=== PATIENT | male | born 1955 | race Two or more races ===

== ENCOUNTER 2017-11-07 21:59 | Inpatient (IN) | payer MEDICAID ==
[~2017-11-07] VITALS: Ht 175.3 cm; Wt 118.4 kg
[2017-11-08 00:45] VITALS: BP 141/76
--- NOTE | 2017-11-08 00:45 | NUR ---
RN NOTE; RECEIVED AND ADMITTED A 62 Y/O, M. A, OX4. FAMILY AT THE BED SIDE. BREATHING EVENLY. NO OSB. NAD . SKIN WARM AND DRY. W/ C/O ABD. PAIN. NO N/V. VSS. SKIN INTACT. MEDICAL HX WAS OBTAINED FROM THE PT AND THE SON AT THE BED SIDE. NEEDS ATTENDED . BED LOW LOCKED .CALL LIGHT WITHIN REACH. WILL CONT TO MONITOR AND WILL F/U WITH MD'S ORDERS.
[2017-11-08] MEDS ORDERED: SITA100T PO (01:13)
[2017-11-08] MEDS ORDERED: METF-442 PO (01:13)
[2017-11-08] MEDS ORDERED: ONDANSETRON HCL/PF 4 MG/2 ML VIAL IV PRN (01:30)
[2017-11-08 01:36] VITALS: BP 141/76
[2017-11-08] MEDS: MORPHINE SULFATE INJ 4 MG/ML DISP.SYRIN IV PRN (01:37)
[2017-11-08] MEDS ORDERED: ACETAMINOPHEN 650 MG/SUPP.RECT RC PRN (05:30)
[2017-11-08] MEDS ORDERED: DEXTROSE 50%-WATER 50 ML DISP.SYRIN IV PRN ×2 (05:30→13:00)
[2017-11-08] MEDS ORDERED: PIPERACILLIN /TAZOBACTAM 3.375 G VIAL IV ONE (05:49)
[2017-11-08] MEDS ORDERED: VANCOMYCIN 2 GM in IV D5W 500 ML IV ONE (06:00)
--- NOTE | 2017-11-08 06:00 | NUR ---
RN NOTES PATIENT ASLEEP, EASILY AROUSABLE. RESPIRATIONS EVEN. NO SIGNS OF PAIN NOTED. NEEDS ATTENDED. SAFETY PRECAUTIONS AND COMFORT MEASURES IN PLACE. WILL GIVE REPORT TO DAY SHIFT FOR CONTINUITY OF CARE.
[2017-11-08] MEDS: BLOOD SUGAR DIAGNOSTIC 1 EACH STRIP IN SCH ×3 (06:37→17:37)
[2017-11-08] MEDS: PIPERACILLIN /TAZOBACTAM 3.375 G in IV D5W 50 ML IV SCH ×3 (06:41→17:26)
[2017-11-08] MEDS: IV D5/0.45 NACL 1,000 ML IV PRN (06:42)
[2017-11-08] MEDS ORDERED: FEE PK DOSING 1 MIN EA MC ONE (07:28)
[2017-11-08 07:47] LABS: BASOPHILS % (AUTO) 0.3 % (0.0-2.0); EOSINOPHILS % (AUTO) 0.7 % (0.0-6.0); HEMATOCRIT 35 % (39-51); LYMPHOCYTES # (AUTO) 0.6 /CMM (0.8-4.8); LYMPHOCYTES % (AUTO) 14.2 % (20.0-44.0); MEAN CORPUSCULAR HGB CONC 34 g/dl (31.0-36.0); MEAN CORPUSCULAR VOLUME 85 fL (80-96); MONOCYTES # (AUTO) 0.3 /CMM (0.1-1.30); NEUTROPHILS # (AUTO) 3.5 /CMM (1.8-8.9); NEUTROPHILS % (AUTO) 77.8 % (43.0-81.0); PLATELET COUNT (AUTO) 272 /CMM (150-450); RDW COEFFICIENT OF VARIATION 12.3 (11.5-15.0); RED BLOOD CELL COUNT(AUTO) 4.13 MIL/uL (4.5-6.0); WHITE BLOOD COUNT (AUTO) 4.5 K/uL (4.3-11.0)
[2017-11-08 07:59] LABS: CALCIUM, SERUM 8.3 mg/dL (8.5-10.1); CARBON DIOXIDE 29 mmol/L (21-32); CHLORIDE 105 mmol/L (98-107); CREATININE 0.8 mg/dL (0.6-1.3); GLUCOSE 212 mg/dL (74-106); SODIUM SERUM 141 mmol/L (136-145); UREA NITROGEN, BLOOD 9 mg/dL (7-18)
[2017-11-08 08:00] VITALS: BP 123/70
[2017-11-08] MEDS ORDERED: VANCOMYCIN 1.5 GM in IV D5W 500 ML IV ONE (08:00)
--- NOTE | 2017-11-08 08:00 | NUR ---
MS RN NOTES PATIENT IN BED RESTING NO SOB OR ACUTE DISTRESS NOTED. PATIENT ALERT, ORIENTED X4 DENIES ANY PAIN OR DISCOMFORT. PERIPHERAL IV INTACT PATENT RUNNING PRESCRIBED FLUIDS. BED IN LOW LOCKED POSITION CALL LIGHT WITHIN REACH. WILL CONTINUE TO MONITOR.
[2017-11-08 08:06] LABS: TROPONIN I < 0.017 ng/mL (0.00-0.056)
[2017-11-08 08:11] LABS: CHOLESTEROL 194 mg/dL (<200); HDL CHOLESTEROL 35 mg/dL (40-60); LDL 129 mg/dL (0-99); THYROID STIMULATING HORMONE 1.207 uIU/mL (0.358-3.74); TRIGLYCERIDES 194 mg/dL (30-150)
[2017-11-08 08:13] LABS: ALANINE AMINOTRANSFERASE 22 U/L (12-78); ALBUMIN 2.8 g/dL (3.4-5.0); ALKALINE PHOSPHATASE 93 U/L (46-116); ASPARTATE AMINOTRANSFERASE 13 U/L (15-37); BILIRUBIN,TOTAL 0.5 mg/dL (0.2-1.0); PHOSPHORUS 3.4 mg/dL (2.5-4.9)
[2017-11-08] MEDS: VANCOMYCIN 1.5 GM in IV D5W 500 ML IV SCH ×2 (09:48→22:11)
[2017-11-08] MEDS: PANTOPRAZOLE 40 MG VIAL IV SCH (09:49)
[2017-11-08] MEDS ORDERED: KETOROLAC TROMETHAMINE INJ 30 MG/ML VIAL IV ONE (12:30)
[2017-11-08] MEDS: INSULIN REGULAR, HUMAN 100 UNIT/ML 3 ML VIAL SQ PRN ×2 (12:33→17:38)
[2017-11-08] MEDS ORDERED: INSULIN REGULAR, HUMAN 100 UNIT/ML 3 ML VIAL SQ PRN (13:00)
[2017-11-08 16:00] VITALS: BP 138/78
--- NOTE | 2017-11-08 16:00 | NUR ---
MS RN NOTES PATIENT SEEN AND EVALUATED BY DR. VIVAR ORDERS NOTED AND CARRIED OUT.
[2017-11-08] MEDS ORDERED: BLOOD SUGAR DIAGNOSTIC 1 EACH STRIP IN SCH (18:00)
--- NOTE | 2017-11-08 18:41 | NUR ---
MS RN NOTES PATIENT IN BED RESTING NO SOB OR ACUTE DISTRESS NOTED. PATIENT ALERT, ORIENTED X4. PATIENT REMAINS NPO. PERIPHERAL IV INTACT PATENT. ALL DUE MEDICATIONS ADMINISTERED. ALL NEEDS MET. WILL ENDORSE CARE TO PM SHIFT.
--- NOTE | 2017-11-08 19:30 | NUR ---
MS/RN OPENING NOTES PT RECEIVED AWAKE, A/OX4. FRENCH SPEAKING BUT UNDERSTANDS SOME SWEDISH. ON ROOM AIR, BREATHING EVEN AND UNLABORED. NO S/S OF DISTRESS AT THIS TIME. DENIES PAIN AND SOB. IV TO RFA PATENT AND INTACT RUNNING IVF ORDERED. PT NPO. BED IN LOW/LOCKED POSITION WITH CALL LIGHT IN REACH, SIDE RAILS UP X2. WILL CONTINUE TO MONITOR
[2017-11-08 20:00] VITALS: BP 146/88
[2017-11-09] MEDS: BLOOD SUGAR DIAGNOSTIC 1 EACH STRIP IN SCH ×6 (00:30→23:33)
[2017-11-09] MEDS: PIPERACILLIN /TAZOBACTAM 3.375 G in IV D5W 50 ML IV SCH ×5 (00:30→23:32)
[2017-11-09] MEDS: INSULIN REGULAR, HUMAN 100 UNIT/ML 3 ML VIAL SQ PRN ×5 (00:41→23:39)
[2017-11-09] MEDS: IV D5/0.45 NACL 1,000 ML IV PRN (06:05)
--- NOTE | 2017-11-09 07:08 | NUR ---
MS/RN CLOSING NOTES PT ASLEEP, A/OX4. REMAINS ON ROOM AIR, BREATHING EVEN AND UNLABORED. DENIES PAIN AND SOB. IV TO RFA PATENT AND INTACT RUNNING IVF ORDERED. PT REMAINED NPO DURING SHIFT. NO SIGNIFICANT CHANGES OVERNIGHT. KEPT PT COMFORTABLE DURING SHIFT. BED IN LOW/LOCKED POSITION WITH CALL LIGHT IN REACH, SIDE RAILS UP X2. ENDORSED TO DAY SHIFT RN BRITNI.
--- NOTE | 2017-11-09 07:20 | NUR ---
MS/RN OPENING NOTES PT ASLEEP, A/OX4. REMAINS ON ROOM AIR, BREATHING EVEN AND UNLABORED. DENIES PAIN AND SOB. IV TO RFA PATENT AND INTACT RUNNING IVF ORDERED. PT REMAINED NPO AT THIS TIME. KEPT CLEAN DRY AND COMFORTABLE. BED IN LOW/LOCKED POSITION WITH CALL LIGHT IN REACH, SIDE RAILS UP X2, WILL CONTINUE TO MONITOR
[2017-11-09 08:00] VITALS: BP 142/80
[2017-11-09] MEDS: VANCOMYCIN 1.5 GM in IV D5W 500 ML IV SCH ×2 (08:38→21:04)
[2017-11-09] MEDS: PANTOPRAZOLE 40 MG VIAL IV SCH (08:38)
[2017-11-09 08:50] LABS: BASOPHILS % (AUTO) 0.3 % (0.0-2.0); EOSINOPHILS % (AUTO) 0.7 % (0.0-6.0); HEMATOCRIT 37 % (39-51); HEMOGLOBIN 12.9 g/dL (13.5-17.5); LYMPHOCYTES # (AUTO) 0.9 /CMM (0.8-4.8); LYMPHOCYTES % (AUTO) 19.9 % (20.0-44.0); MEAN CORPUSCULAR HGB CONC 35 g/dl (31.0-36.0); MEAN CORPUSCULAR VOLUME 84 fL (80-96); MONOCYTES # (AUTO) 0.4 /CMM (0.1-1.30); MONOCYTES % (AUTO) 8.9 % (2.0-12.0); NEUTROPHILS # (AUTO) 3.1 /CMM (1.8-8.9); NEUTROPHILS % (AUTO) 70.2 % (43.0-81.0); PLATELET COUNT (AUTO) 307 /CMM (150-450); RDW COEFFICIENT OF VARIATION 12.1 (11.5-15.0); WHITE BLOOD COUNT (AUTO) 4.4 K/uL (4.3-11.0)
[2017-11-09 08:57] LABS: BILIRUBIN,DIRECT 0.1 mg/dL (0.0-0.2); BILIRUBIN,TOTAL 0.9 mg/dL (0.2-1.0); CALCIUM, SERUM 8.5 mg/dL (8.5-10.1); MAGNESIUM 2.1 mg/dL (1.8-2.4); PHOSPHORUS 3.3 mg/dL (2.5-4.9); POTASSIUM 3.7 mmol/L (3.5-5.1); TOTAL PROTEIN, SERUM 7.7 g/dL (6.4-8.2)
[2017-11-09] MEDS: MORPHINE SULFATE INJ 4 MG/ML DISP.SYRIN IV PRN ×2 (10:40→21:02)
[2017-11-09] MEDS ORDERED: MIDAZOLAM HCL 5MG/ML VIAL 25 MG/5 ML VIAL IV ONE (15:00)
[2017-11-09] MEDS ORDERED: NALOXONE PREFILLED SYRINGE 2 MG/2 ML SYRINGE IV ONE (15:00)
[2017-11-09] MEDS ORDERED: FENTANYL PF 250MCG/5ML AMPUL IV ONE (15:00)
[2017-11-09 15:01] LABS: INR 1.02 (0.87-1.13)
[2017-11-09 16:00] VITALS: BP 146/85
--- NOTE | 2017-11-09 16:01 | NUR ---
RN NOTES PATIENT TAKEN CT FOR PROCEDURE IN STABLE CONDITION
[2017-11-09] MEDS ORDERED: IV NS 0.9% 500 ML IV ONE (16:04)
[2017-11-09] MEDS ORDERED: LIDOCAINE HCL/PF 1% 30 ML SDV ONE (16:24)
--- NOTE | 2017-11-09 18:30 | NUR ---
RN NOTES PT BACK FROM PROCEDURE, BODY FLUID TAKEN TO LAB FOR TESTING WILL CONTINUE TO MONITOR
--- NOTE | 2017-11-09 19:30 | NUR ---
MS/RN OPENING NOTES PT AWAKE ALERT VERBALLY RESPONSIVE, A/OX4. REMAINS ON ROOM AIR, BREATHING EVEN AND UNLABORED. DENIES PAIN AND SOB. IV TO RFA PATENT AND INTACT RUNNING IVF ORDERED. PT NOW WITH CLEAR LIQUIDS. KEPT CLEAN DRY AND COMFORTABLE. BED IN LOW/LOCKED POSITION WITH CALL LIGHT IN REACH, SIDE RAILS UP X2, ENDORSED TO NEXT SHIFT FOR CONTINUITY OF CARE
--- NOTE | 2017-11-09 19:35 | NUR ---
MS RN OPENING NOTES: PATIENT SITTING ON BED, AOX4, ON ROOM AIR, BREATHING EVEN AND UNLABORED. APPEARS CALM AND IN NO DISTRESS. STATES THAT HE HAS MODERATE 6/10 PAIN OVER HIS RUQ OF ABDOMEN. NOTED DRAIN ATTACHED AT RUQ ABDOMEN, WITH VERY MINIMAL AMOUNT OF SANGUINEOUS DRAINAGE IN COLLECTION CHAMBER, SO MINIMAL THAT IT HAS NOT REACHED THE COLLECTION BAG ITSELF. DRESSING OVER RUQ CLEAN AND INTACT. PIV OVER RFA G 20 INTACT AND INFUSING WELL WITH D5 1/2 NS RUNNING AT 70 ML/HR. PROVIDED FOR COMFORT AND SAFETY. BED IN LOWEST AND LOCKED POSITION. SIDERAILS UP X 3, CALL LIGHT WITHIN REACH. WILL CONT TO MONITOR.
[2017-11-09 20:00] VITALS: BP 141/79
--- NOTE | 2017-11-09 21:03 | NUR ---
RN NOTES: ADMINISTERED MORPHINE 4 MG IV FOR 9/10 RUQ PAIN. VS STABLE. WILL CONT TO MONITOR.
[2017-11-09 22:00] VITALS: BP 138/75
--- NOTE | 2017-11-09 23:00 | NUR ---
RN NOTES: PATIENT ASKED IF HE CAN BE GIVEN MOTRIN, ACCDG TO HIM, HE TAKES 800 MG PO AT HOME. CALLED CHARIS LOPEZ NP, HOWEVER, MOTRIN NOT ORDERED FOR HIM AT THIS TIME, PER PRIVACY MANAGER, CONT CURRENT MEDS FOR PAIN. EXPLAINED TO PT, COLIN AGREES.
[2017-11-09] MEDS: HYDROCODONE/APAP 10/325MG 1 EA TABLET PO SCH (23:33)
--- NOTE | 2017-11-10 | NUR ---
RN NOTES: BS CHECKED AT 208 MG/DL, ADMINISTERED 6 UNITS REGULAR INSULIN PER SCALE. WILL CONT TO MONITOR.
[2017-11-10] MEDS: HYDROCODONE/APAP 10/325MG 1 EA TABLET PO SCH ×4 (04:00→22:00)
--- NOTE | 2017-11-10 05:07 | NUR ---
RN NOTES: PATIENT REFUSING NORCO 10-325 MG PO, SAYS HE IS FREE FROM PAIN FOR NOW. PATIENT WENT BACK TO SLEEP.
[2017-11-10] MEDS: BLOOD SUGAR DIAGNOSTIC 1 EACH STRIP IN SCH ×4 (06:08→23:41)
[2017-11-10] MEDS: PIPERACILLIN /TAZOBACTAM 3.375 G in IV D5W 50 ML IV SCH ×2 (06:08→12:31)
--- NOTE | 2017-11-10 06:15 | NUR ---
RN NOTES: BLOOD SUGAR CHECKED AT 163 MG/ DL, ADMINISTERED 3 UNITS REGULAR INSULIN PER SCALE SQ.
[2017-11-10] MEDS: INSULIN REGULAR, HUMAN 100 UNIT/ML 3 ML VIAL SQ PRN ×4 (06:22→23:50)
--- NOTE | 2017-11-10 06:26 | NUR ---
RN NOTES: PATIENT REFUSING AM BLOOD DRAW. EXPLAINED RISKS AND BENEFITS, PATIENT STILL REFUSING.
--- NOTE | 2017-11-10 07:12 | NUR ---
MS RN CLOSING NOTES: PATIENT IN BED, AOX4, ON ROOM AIR, BREATHING EVEN AND UNLABORED. APPEARS CALM AND IN NO DISTRESS. PIV OVER RFA G 20 INTACT AND PATENT TO FLUSH. RUQ ABDOMINAL DRAIN INTACT, WITH MINIMAL AMOUNT OF SANGUINEOUS DRAINAGE NOTED OVER R SIDE OF ANTERIOR ABDOMEN. DUE MEDS GIVEN. PROVIDED FOR COMFORT AND SAFETY. BED IN LOWEST AND LOCKED POSITION, SIDERAILS UP X 3, CALL LIGHT WITHIN REACH. WILL ENDORSE TO AM RN FOR BRITNI.
[2017-11-10 08:00] VITALS: BP 129/73
--- NOTE | 2017-11-10 08:00 | NUR ---
MS RN CLOSING NOTES: PATIENT IN BED, AOX4, ON ROOM AIR, BREATHING EVEN AND UNLABORED. APPEARS CALM AND IN NO DISTRESS. PIV OVER RFA G 20 INTACT AND PATENT TO FLUSH. RUQ ABDOMINAL DRAIN INTACT, WITH MINIMAL AMOUNT OF SANGUINEOUS DRAINAGE NOTED OVER R SIDE OF ANTERIOR ABDOMEN. DUE MEDS GIVEN. PT REFUSED NORCO DENYING PAIN.AMBULATES ALONG THE HALLWAY WITH SLOW,STEADY GAIT.PROVIDED FOR COMFORT AND SAFETY. BED IN LOWEST AND LOCKED POSITION, SIDERAILS UP X 3, CALL LIGHT WITHIN REACH.
[2017-11-10 08:35] LABS: BASOPHILS % (AUTO) 0.3 % (0.0-2.0); CALCIUM, SERUM 8.6 mg/dL (8.5-10.1); CREATININE 2.5 mg/dL (0.6-1.3); EOSINOPHILS % (AUTO) 1.1 % (0.0-6.0); HEMATOCRIT 40 % (39-51); HEMOGLOBIN 13.6 g/dL (13.5-17.5); LYMPHOCYTES # (AUTO) 0.8 /CMM (0.8-4.8); LYMPHOCYTES % (AUTO) 17.2 % (20.0-44.0); MAGNESIUM 1.7 mg/dL (1.8-2.4); MEAN CORPUSCULAR HGB CONC 35 g/dl (31.0-36.0); MEAN CORPUSCULAR VOLUME 85 fL (80-96); MONOCYTES # (AUTO) 0.5 /CMM (0.1-1.30); NEUTROPHILS # (AUTO) 3.4 /CMM (1.8-8.9); NEUTROPHILS % (AUTO) 71.4 % (43.0-81.0); PHOSPHORUS 4.5 mg/dL (2.5-4.9); PLATELET COUNT (AUTO) 330 /CMM (150-450); POTASSIUM 3.7 mmol/L (3.5-5.1); RDW COEFFICIENT OF VARIATION 12.7 (11.5-15.0); RED BLOOD CELL COUNT(AUTO) 4.66 MIL/uL (4.5-6.0); WHITE BLOOD COUNT (AUTO) 4.8 K/uL (4.3-11.0)
[2017-11-10] MEDS: PANTOPRAZOLE 40 MG VIAL IV SCH (09:08)
[2017-11-10] MEDS: VANCOMYCIN 1.5 GM in IV D5W 500 ML IV SCH (09:08)
[2017-11-10] MEDS ORDERED: Magnesium 1GM/D5W 100ML PREMIX 100 ML IV SCH (13:42)
[2017-11-10 15:54] VITALS: BP 135/71
[2017-11-10] MEDS: PIPERACILLIN /TAZOBACTAM 2.25 G in IV D5W 50 ML IV SCH ×2 (17:06→23:41)
--- NOTE | 2017-11-10 19:30 | NUR ---
MS RN OPENING NOTES: PATIENT SITTING ON CHAIR, AOX4, ON ROOM AIR, BREATHING EVEN AND UNLABORED. APPEARS CALM AND IN NO DISTRESS, DENIES PAIN AT THIS TIME, FAMILY AT BEDSIDE. PATIENT'S RUQ ABDOMINAL DRAIN WITH CLEAN AND INTACT DRESSING, NOTED MINIMAL SANGUINEOUS DRAINAGE IN COLLECTION BAG. PIVO SKYLAR RFA G 20 INTACT AND PATENT TO FLUSH. PROVIDED FOR COMFORT AND SAFETY. BED IN LOWEST AND LOCKED POSITION, SIDERAILS UP X 3, CALL LIGHT WITHIN REACH. WILL CONT TO MONITOR.
[2017-11-10 20:00] VITALS: BP 129/70
--- NOTE | 2017-11-10 23:52 | NUR ---
RN NOTES: BS CHECKED AT 255 MG /DL, ADMINISTERED 9 UNITS REGULAR INSULIN SQ PER SCALE. OFFERED LIGHT SNACK. WILL CONT TO MONITOR.
[2017-11-11] MEDS: MORPHINE SULFATE INJ 4 MG/ML DISP.SYRIN IV PRN (01:33)
--- NOTE | 2017-11-11 01:34 | NUR ---
RN NOTES: PATIENT COMPLAINED OF 8/10 PAIN OVER THE RIGHT SIDE OF ABDOMEN. ADMINISTERED MORPHINE 4 MG IV PRN. WILL CONT TO MONITOR.
[2017-11-11] MEDS: HYDROCODONE/APAP 10/325MG 1 EA TABLET PO SCH ×4 (04:00→22:07)
[2017-11-11] MEDS: PIPERACILLIN /TAZOBACTAM 2.25 G in IV D5W 50 ML IV SCH ×4 (05:48→23:19)
[2017-11-11] MEDS: BLOOD SUGAR DIAGNOSTIC 1 EACH STRIP IN SCH ×4 (05:49→23:19)
[2017-11-11] MEDS: INSULIN REGULAR, HUMAN 100 UNIT/ML 3 ML VIAL SQ PRN ×4 (05:50→23:27)
--- NOTE | 2017-11-11 05:58 | NUR ---
RN NOTES: BLOOD SUGAR CHECKED AT 162 MG /DL, ADMINISTERED 3 UNITS REGULAR INSULIN PER SCALE. WILL CONT TO MONITOR.
--- NOTE | 2017-11-11 07:30 | NUR ---
MS RN CLOSING NOTES: PATIENT IN BED, AOX4, ON ROOM AIR, BREATHING EVEN AND UNLABORED. APPEARS CALM AND IN NO DISTRESS. PIV OVER RFA G 20 INTACT AND PATENT TO FLUSH. RUQ ABDOMINAL DRAIN INTACT, WITH MINIMAL AMOUNT OF SEROSANGUINEOUS DRAINAGE NOTED OVER R SIDE OF ANTERIOR ABDOMEN. DUE MEDS GIVEN. PROVIDED FOR COMFORT AND SAFETY. BED IN LOWEST AND LOCKED POSITION, SIDERAILS UP X 3, CALL LIGHT WITHIN REACH. WILL ENDORSE TO AM RN FOR BRITNI.
[2017-11-11 08:00] VITALS: BP 133/72
[2017-11-11 08:17] LABS: CALCIUM, SERUM 8.1 mg/dL (8.5-10.1); CREATININE 3.4 mg/dL (0.6-1.3); MAGNESIUM 1.8 mg/dL (1.8-2.4); POTASSIUM 3.6 mmol/L (3.5-5.1)
[2017-11-11] MEDS: PANTOPRAZOLE 40 MG VIAL IV SCH (08:29)
[2017-11-11] MEDS ORDERED: VANCOMYCIN 1 GM in IV NS 0.9% 250 ML IV SCH (09:00)
[2017-11-11] MEDS ORDERED: INSULIN GLARGINE, 100 UNIT/ML CARTRIDGE SQ ONE (09:30)
--- NOTE | 2017-11-11 09:30 | NUR ---
SEEN BY DR KYLE AND ORDERED VIDES CATH INSERTION SAYING THAT PT HASN'T VOIDED URINE SINCE YESTERDAY.CHECKED WITH PT WHO STATED THAT HE JUST MISUNDERSTOOD WHAT THE DOCTOR WAS ASKING BUT THE PT STATED THAT HE VOIDED 5X YESTERDAY AND 2X THIS AM.PT REFUSED VIDES CATH INSERTION AND INSTRUCTED PT TO VOID IN THE URINAL TO ACCURATELY MEASURE HIS OUTPUT.PT VERBALIZED UNDERSTANDING OF INSTRUCTIONS GIVEN.PT VOIDED 350 ML CLEAR YELLOW URINE IN THE URINAL AT THIS TIME AND SENT A SPECIMEN FOR UA PROFILE TO THE LAB.
[2017-11-11 12:54] LABS: APPEARANCE,URINE CLEAR (CLEAR); BILIRUBIN,URINE NEGATIVE (NEGATIVE); BLOOD, URINE NEGATIVE Ery/uL (NEGATIVE); COLOR,URINE YELLOW (YELLOW); KETONES,URINE NEGATIVE (NEGATIVE); LEUKOCYTE ESTERASE ,URINE NEGATIVE (NEGATIVE); NITRITE, URINE NEGATIVE (NEGATIVE); PROTEIN,URINE NEGATIVE (NEGATIVE); UGLUCOSE NEGATIVE (NEGATIVE); UROBILINOGEN,URINE 0.2 EU/dL (0.2)
[2017-11-11 12:56] LABS: EOSINOPHIL,URINE None Seen
[2017-11-11 15:44] VITALS: BP 155/78
[2017-11-11 17:13] LABS: CREATININE, URINE 52.6 MG/DL (30.0-125.0); URINE TOTAL PROTEIN 16.8 mg/dL (0-11.9)
--- NOTE | 2017-11-11 19:40 | NUR ---
PT VOIDED 1700 ML OF CLEAR YELLOW URINE OUTPUT VIA URINAL.DENIES ANY PAIN OR DISTRESS.WILL CONTINUE TO MONITOR.
--- NOTE | 2017-11-11 19:45 | NUR ---
MS RN NOTE: PATIENT UP IN CHAIR WITH FAMILY AT BEDSIDE, NO ACUTE DISTRESS NOTED. BREATHING EVEN AND UNLABORED, NO SOB NOTED. IV TO RFA IN PLACE. ABDOMINAL DRAIN IN PLACE, DRAINING SEROSANGUINEOUS DRAINAGE. NO S/S OF HYPER/HYPOGLYCEMIA NOTED. CALL LIGHT IN REACH. WILL CONTINUE TO MONITOR.
[2017-11-11 20:04] VITALS: BP 143/71
--- NOTE | 2017-11-11 23:30 | NUR ---
MS RN NOTE: PATIENT BLOOD SUGAR LEVEL 136 MG/DL, PATIENT TO RECEIVE 2 UNITS OF INSULIN PER SLIDING SCALE. NO S/S OF HYPER/HYPOGLYCEMIA NOTED. WILL CONTINUE TO MONITOR.
[2017-11-12] MEDS: HYDROCODONE/APAP 10/325MG 1 EA TABLET PO SCH ×5 (04:00→21:57)
--- NOTE | 2017-11-12 04:22 | NUR ---
MS RN NOTE: PATIENT REFUSED NORCO 10/325MG, PATIENT DENIES PAIN AT THIS TIME. MEDICATION WASTED. WILL CONTINUE TO MONITOR.
[2017-11-12] MEDS: PIPERACILLIN /TAZOBACTAM 2.25 G in IV D5W 50 ML IV SCH ×4 (06:19→23:27)
[2017-11-12] MEDS: BLOOD SUGAR DIAGNOSTIC 1 EACH STRIP IN SCH ×4 (06:19→23:22)
[2017-11-12] MEDS: INSULIN REGULAR, HUMAN 100 UNIT/ML 3 ML VIAL SQ PRN ×4 (06:26→23:27)
--- NOTE | 2017-11-12 06:30 | NUR ---
MS RN NOTE: PATIENT RESTING IN BED, NO ACUTE DISTRESS NOTED. BREATHING EVEN AND UNLABORED, NO SOB NOTED. IV TO RFA IN PLACE. ABDOMINAL DRAIN IN PLACE, DRAINING SEROSANGUINEOUS DRAINAGE. BLOOD SUGAR LEVEL 174 MG/DL, PATIENT TO RECEIVE 3 UNITS OF INSULIN PER SLIDING SCALE, NO S/S OF HYPER/HYPOGLYCEMIA NOTED. CALL LIGHT IN REACH. WILL ENDORSE TO DAY NURSE TO CONTINUE WITH PLAN OF CARE.
[2017-11-12 06:38] LABS: APPEARANCE,URINE CLEAR (CLEAR); BILIRUBIN,URINE NEGATIVE (NEGATIVE); BLOOD, URINE NEGATIVE Ery/uL (NEGATIVE); COLOR,URINE YELLOW (YELLOW); KETONES,URINE NEGATIVE (NEGATIVE); LEUKOCYTE ESTERASE ,URINE NEGATIVE (NEGATIVE); NITRITE, URINE NEGATIVE (NEGATIVE); PROTEIN,URINE NEGATIVE (NEGATIVE); UGLUCOSE NEGATIVE (NEGATIVE); UROBILINOGEN,URINE 0.2 EU/dL (0.2)
[2017-11-12 07:41] LABS: CREATININE, URINE 42.6 MG/DL (30.0-125.0); URINE TOTAL PROTEIN 7.9 mg/dL (0-11.9)
--- NOTE | 2017-11-12 08:00 | NUR ---
MS RN AM NOTES: PATIENT SITTING ON CHAIR, AOX4, ON ROOM AIR, BREATHING EVEN AND UNLABORED. APPEARS CALM AND IN NO DISTRESS, DENIES PAIN AT THIS TIME, REFUSING NORCO.PATIENT'S RUQ ABDOMINAL DRAIN WITH CLEAN AND INTACT DRESSING, NOTED MINIMAL SANGUINEOUS DRAINAGE IN COLLECTION BAG. PIV ON RFA G 20 INTACT AND PATENT TO FLUSH. PROVIDED FOR COMFORT AND SAFETY. BED IN LOWEST AND LOCKED POSITION, SIDERAILS UP X 3, CALL LIGHT WITHIN REACH. WILL CONT TO MONITOR
[2017-11-12 08:16] VITALS: BP 138/95
[2017-11-12 08:20] LABS: BASOPHILS % (AUTO) 0.3 % (0.0-2.0); EOSINOPHILS % (AUTO) 1.8 % (0.0-6.0); HEMATOCRIT 35 % (39-51); LYMPHOCYTES # (AUTO) 0.7 /CMM (0.8-4.8); LYMPHOCYTES % (AUTO) 19.3 % (20.0-44.0); MEAN CORPUSCULAR HGB CONC 34 g/dl (31.0-36.0); MEAN CORPUSCULAR VOLUME 85 fL (80-96); MONOCYTES # (AUTO) 0.4 /CMM (0.1-1.30); MONOCYTES % (AUTO) 10.3 % (2.0-12.0); NEUTROPHILS # (AUTO) 2.5 /CMM (1.8-8.9); NEUTROPHILS % (AUTO) 68.3 % (43.0-81.0); PLATELET COUNT (AUTO) 300 /CMM (150-450); RDW COEFFICIENT OF VARIATION 12.4 (11.5-15.0); RED BLOOD CELL COUNT(AUTO) 4.16 MIL/uL (4.5-6.0); WHITE BLOOD COUNT (AUTO) 3.7 K/uL (4.3-11.0)
[2017-11-12 08:41] LABS: BILIRUBIN,TOTAL 0.7 mg/dL (0.2-1.0); CALCIUM, SERUM 8.2 mg/dL (8.5-10.1); CREATININE 3.8 mg/dL (0.6-1.3); PHOSPHORUS 4.2 mg/dL (2.5-4.9); POTASSIUM 3.6 mmol/L (3.5-5.1); TOTAL PROTEIN, SERUM 7.9 g/dL (6.4-8.2)
[2017-11-12 08:45] LABS: EOSINOPHIL,URINE None Seen
[2017-11-12] MEDS: PANTOPRAZOLE 40 MG VIAL IV SCH (08:54)
[2017-11-12] MEDS: IV NS 0.9% 1,000 ML IV PRN (12:51)
[2017-11-12 16:00] VITALS: BP 153/74
--- NOTE | 2017-11-12 19:15 | NUR ---
MS RN NOTE: RECEIVED PATIENT UP IN CHAIR WITH FAMILY AT BEDSIDE, A/O X 4, VERBALLY RESPONSIVE. NO ACUTE DISTRESS NOTED. BREATHING EVEN AND UNLABORED, NO SOB NOTED. IV TO RFA IN PLACE. ABDOMINAL DRAIN IN PLACE, DRAINING SEROSANGUINEOUS DRAINAGE. NO S/S OF HYPER/HYPOGLYCEMIA NOTED. DENIES APIN OR DISCOMFORT AT THIS TIME. ALL NEEDS ATTENDED AND MET. CALL LIGHT IN REACH. WILL CONTINUE TO MONITOR.
[2017-11-12 20:00] VITALS: BP 146/82
--- NOTE | 2017-11-12 21:57 | NUR ---
PT REFUSED NORCO , PT IS A/O X 4. RISK AND BENEFITS EXPLAINED, PT STILL REFUSED X 3. DENIES ANY PAIN OR DISCOMFORT AT THIS TIME.
--- NOTE | 2017-11-12 23:27 | NUR ---
bs : 270 at this time, pt on ccho diet ana well. remains a/o x 4. verbally responsive. no s/s of hypo/ hyperglycemia noted. will cont to monitor.
--- NOTE | 2017-11-13 00:32 | NUR ---
pt c/o inability to sleep, pt is a/o x4. placed a call to [facility] relayed pt's concern , received an order for ambien 5 mg x 1 only, noted and carried out.
[2017-11-13] MEDS ORDERED: ZOLPIDEM TARTRATE 5 MG TABLET PO ONE (01:00)
[2017-11-13] MEDS: HYDROCODONE/APAP 10/325MG 1 EA TABLET PO SCH ×4 (04:00→22:00)
[2017-11-13] MEDS: IV NS 0.9% 1,000 ML IV PRN (04:21)
--- NOTE | 2017-11-13 04:48 | NUR ---
PT REFUSED NORCO , PT IS A/O X 4. RISK AND BENEFITS EXPLAINED, PT STILL REFUSED X 3. DENIES ANY PAIN OR DISCOMFORT AT THIS TIME.
[2017-11-13] MEDS: PIPERACILLIN /TAZOBACTAM 2.25 G in IV D5W 50 ML IV SCH ×4 (05:47→23:27)
[2017-11-13] MEDS: BLOOD SUGAR DIAGNOSTIC 1 EACH STRIP IN SCH ×4 (05:49→23:25)
[2017-11-13] MEDS: INSULIN REGULAR, HUMAN 100 UNIT/ML 3 ML VIAL SQ PRN ×4 (05:53→23:40)
--- NOTE | 2017-11-13 06:21 | NUR ---
MS RN NOTE: PT RESTING IN BED, A/O X 4, RESTING COMFORTABLY AT THIS TIME. VERBALLY RESPONSIVE. NO ACUTE DISTRESS NOTED. BREATHING EVEN AND UNLABORED, NO SOB NOTED. IV TO RFA IN PLACE. ABDOMINAL DRAIN IN PLACE, DRAINING SEROSANGUINEOUS DRAINAGE. NO S/S OF HYPER/HYPOGLYCEMIA NOTED. DENIES APIN OR DISCOMFORT AT THIS TIME. ALL NEEDS ATTENDED AND MET. ALL DUE MEDS GIVEN. CALL LIGHT IN REACH. WILL ENDORSE TO NEXT SHIFT FRO BRITNI.
[2017-11-13 07:26] LABS: CALCIUM, SERUM 7.6 mg/dL (8.5-10.1); CREATININE 3.7 mg/dL (0.6-1.3); POTASSIUM 3.8 mmol/L (3.5-5.1)
[2017-11-13 07:51] VITALS: BP 148/81
--- NOTE | 2017-11-13 08:18 | NUR ---
RN OPENING NOTES RECEIVED PT. IN BED SLEEPING. BREATHING UNLABORED, AND EVENLY ON ROOM AIR. NO S/S OF ACUTE DISTRESS. IV FLUIDS RUNNING AT 100 ML/HR ON RIGHT FOREARM. URINAL HAD 600CC OUTPUT OF CLEAR, AND YELLOW URINE. PER PT. LAST BM WAS 11/12. ABDOMINAL DRAIN HAS 85 CC TOTAL OUTPUT. BED IS IN LOWEST, AND LOCKED POSITION. 2 SIDE RAILS UP, AND INSTRUCTED PT. TO USE CALL LIGHT FOR ASSISTANCE. ALL NEEDS MET. WILL CONTINUE TO ASSESS AND MONITOR.
[2017-11-13] MEDS: PANTOPRAZOLE 40 MG VIAL IV SCH (08:41)
[2017-11-13 12:09] LABS: PTH, INTACT 63 pg/mL (15-65)
--- NOTE | 2017-11-13 14:23 | NUR ---
1405 PT refused xray.
[2017-11-13 16:00] VITALS: BP 131/74
--- NOTE | 2017-11-13 19:30 | NUR ---
MS RN NOTES RECEIVED A/O X4,AMBULATING INSIDE HIS ROOM,SON AT BEDSIDE.NEW SALINE LOCK #22 PLACE ON LFA,IV ABX INFUSING AT THIS TIME.WITH RIGHT SIDE ABDOMINAL DRAINS,DRAINING BLOODY OUTPUT.DENIES PAIN AT THE MOMENT.CALL LIGHT IN REACH,NEEDS ANTICIPATED.
--- NOTE | 2017-11-13 19:41 | NUR ---
RN CLOSING NOTES PT. IS IN BED A&OX4. BREATHING UNLABORED, AND EVENLY ON ROOM AIR. NO S/S OF ACUTE DISTRESS. NEW IV STARTED ON LEFT FOREARM GAUGE 22 IV ANTIBIOTICS WERE RESTARTED. 1869 OUTPUT OF CLEAR, AND YELLOW FROM URINAL. PT. HAD A FORMED STOOL TODAY. ABDOMINAL DRAIN HAD 150 CC TOTAL OUTPUT TODAY. BED IS IN LOWEST, AND LOCKED POSITION. 2 SIDE RAILS UP, AND INSTRUCTED PT. TO USE CALL LIGHT FOR ASSISTANCE. ALL NEEDS MET. WILL ENDORSE REPORT TO NURSE.
[2017-11-13 19:43] VITALS: BP 128/76
[2017-11-13 20:09] VITALS: BP 128/76
--- NOTE | 2017-11-13 22:00 | NUR ---
MS RN NOTES WITH NORCO 10/325MG TAB SCHEDULED,OFFERED BUT REFUSED,CLAIMED HE WILL ALERT THE NURSE IF HE NEEDS IT.PAIN AT THE MOMENT TOLERABLE.
--- NOTE | 2017-11-13 23:23 | NUR ---
MS RN NOTES ORAL TEMP CHECKED PER PATIENT REQUEST AND IT WAS 98.2.
--- NOTE | 2017-11-14 | NUR ---
MS RN NOTES OFFERED NORCO 10/325MG.1TAB SCHEDULED BUT REFUSED,CLAIMED PAIN IS TOLERABLE.WILL INFORM THE NURSE IF HE NEEDS IT.
[2017-11-14] MEDS: HYDROCODONE/APAP 5/325MG 1 EACH TABLET PO PRN (01:07)
--- NOTE | 2017-11-14 01:07 | NUR ---
MS RN NOTES C/O ABDOMINAL PAIN 5/10 ON PAIN SCALE,NORCO 5/325MG,1TAB PO GIVEN ORDERED
--- NOTE | 2017-11-14 03:05 | NUR ---
MS RN NOTES AWAKE THIS TIME,AMBULATE ON THE HALLWAYS
[2017-11-14] MEDS: HYDROCODONE/APAP 10/325MG 1 EA TABLET PO SCH ×3 (04:00→16:00)
--- NOTE | 2017-11-14 04:00 | NUR ---
MS RN NOTES ACCU-CHECK BLOOD SUGAR CHECK 192,HUMULIN R 3 UNITS ADMINISTERED SQ VIA LEFT DELTOID
--- NOTE | 2017-11-14 04:00 | NUR ---
MS RN NOTES DUE NORCO 10/325MG 1 TAB HELD,SLEEPING.
--- NOTE | 2017-11-14 06:00 | NUR ---
MS RN NOTES DUE ZOSYN 2.25GM IVPB HUNG
[2017-11-14] MEDS: PIPERACILLIN /TAZOBACTAM 2.25 G in IV D5W 50 ML IV SCH ×4 (06:05→23:14)
[2017-11-14] MEDS: BLOOD SUGAR DIAGNOSTIC 1 EACH STRIP IN SCH ×4 (06:06→23:14)
[2017-11-14] MEDS: INSULIN REGULAR, HUMAN 100 UNIT/ML 3 ML VIAL SQ PRN ×4 (06:14→23:22)
--- NOTE | 2017-11-14 06:22 | NUR ---
MS RN NOTES NO SIGNIFICANT CHANGE IN STATUS.AMBULATES PLENTY TIMES AT NOC,PAIN TOLERABLE.MEDICATE ONLY ONCE WITH NORCO 5/325MG PRN FOR MODERATE PAIN,EFFECTIVE.STILL DRAINS BLOODY DISCHARGES ON HIS ABDOMINAL DRAINAGE BAG.IN NO ACUTE DISTRESS.CALL LIGHT IN REACH,NEEDS ATTENDED.WILL ENDORSE TO DAY NURSE FOR BRITNI.
[2017-11-14 06:53] LABS: CALCIUM, SERUM 7.5 mg/dL (8.5-10.1); CREATININE 3.6 mg/dL (0.6-1.3); MAGNESIUM 1.7 mg/dL (1.8-2.4); PHOSPHORUS 3.4 mg/dL (2.5-4.9); POTASSIUM 3.7 mmol/L (3.5-5.1)
[2017-11-14 07:02] LABS: BASOPHILS % (AUTO) 0.5 % (0.0-2.0); EOSINOPHILS % (AUTO) 1.8 % (0.0-6.0); HEMATOCRIT 29 % (39-51); LYMPHOCYTES # (AUTO) 0.7 /CMM (0.8-4.8); LYMPHOCYTES % (AUTO) 20.6 % (20.0-44.0); MEAN CORPUSCULAR HGB CONC 34 g/dl (31.0-36.0); MEAN CORPUSCULAR VOLUME 84 fL (80-96); MONOCYTES # (AUTO) 0.3 /CMM (0.1-1.30); MONOCYTES % (AUTO) 9.6 % (2.0-12.0); NEUTROPHILS # (AUTO) 2.3 /CMM (1.8-8.9); NEUTROPHILS % (AUTO) 67.5 % (43.0-81.0); PLATELET COUNT (AUTO) 223 /CMM (150-450); RDW COEFFICIENT OF VARIATION 12.8 (11.5-15.0); RED BLOOD CELL COUNT(AUTO) 3.44 MIL/uL (4.5-6.0); WHITE BLOOD COUNT (AUTO) 3.4 K/uL (4.3-11.0)
[2017-11-14 07:51] VITALS: BP 140/72
--- NOTE | 2017-11-14 07:56 | NUR ---
MS RN NOTES A/O X4, TOLERATING ROOM AIR, NO SOB. RIGHT LOWER ABDOMEN TUBE DRAINAGE TO COLLECTION BAG BY GRAVITY, SANGUINEOUS FLUID MINIMAL AMOUNT. LOW MAGNESIUM 1.7, WILL F/U WITH MD. DENIES PAIN, SAFETY MEASURES IN PLACE. WILL CONT TO MONITOR.
[2017-11-14] MEDS: PANTOPRAZOLE 40 MG VIAL IV SCH (08:31)
[2017-11-14] MEDS: ACETAMINOPHEN 325 MG TABLET PO PRN ×2 (10:46→16:08)
--- NOTE | 2017-11-14 10:50 | NUR ---
NORCO 10/325MG SCHEDULED NON ADMINISTERED, PATIENT IS REFUSING, STATING HE'S NOT IN A LOT OF PAIN, ONLY HEADACHE. IVF NOT INFUSING, EDUCATED AND TEACHING PROVIDED, PATIENT WITH GOOD PO INTAKE. INFORM DR. SILVA, MEDICATED PATIENT WITH TYLENOL 650MG PO PRN, WILL REASSESS.
--- NOTE | 2017-11-14 12:59 | NUR ---
LOW MAGNESIUM 1.7 CREATININE 3.6 PATIENT REPORTED HE IS URINATING ADEQUATELY EVERY 2 HOURS AND WITHOUT DIFFICULTY. INFORMED DR. FRANKY HARRIS, WITH NO NEW ORDERS AT THIS TIME.
[2017-11-14 16:00] VITALS: BP 157/87
[2017-11-14] MEDS ORDERED: MENTHOL/CETYLPYRD (CEPACOL) 1 LOZ LOZENGE PO PRN (16:00)
--- NOTE | 2017-11-14 16:09 | NUR ---
PATIENT REPORTED SORE THROAT, NO COUGHING, AFEBRILE. NOTIFIED DR. SILVA, WILL MEDICATE PATIENT WITH LOZENGES CEPACOL, WILL REASSESS.
[2017-11-14 16:30] VITALS: BP 157/87
[2017-11-14] MEDS ORDERED: IBUPROFEN 400 MG TABLET PO PRN ×2 (18:00→20:30)
--- NOTE | 2017-11-14 18:50 | NUR ---
MS RN CLOSING NOTES LOW MAGNESIUM 1.7 NOT REPLACED, CREATININE ELEVATED 3.6 DR. STEVEN LAWRENCE IS AWARE WITH NO NEW ORDERS, PATIENT REPORTED HE IS URINATING WELL AND WITHOUT DIFFICULTY. IVF NS AT 100ML/HR NOT INFUSING, PER PATIENT HE DOES NOT NEED IT, DR. SILVA IS AWARE. BLOOD SUGAR MONITORED WITH ISS PARAMETERS. GOOD APPETITE. RIGHT LAT ABDOMEN INCISION DRESSING INTACT, TUBING SECURED WITH BLOODY FLUID DRAINAGE TO GRAVITY, MINIMAL AMT. HEADACHE MANAGED BY MOTRIN 400MG PO PRN. AFEBRILE DURING THE SHE SHIFT. SAFETY MEASURES IN PLACE. WILL ENDORSE TO ONCOMING RN.
--- NOTE | 2017-11-14 19:45 | NUR ---
MS RN NOTE: PATIENT UP IN CHAIR WITH FAMILY AT BEDSIDE, NO ACUTE DISTRESS NOTED. BREATHING EVEN AND UNLABORED, NO SOB NOTED. IV TO LFA IN PLACE. ABDOMINAL DRAIN IN PLACE, DRAINING SEROSANGUINEOUS DRAINAGE. NO S/S OF HYPER/HYPOGLYCEMIA NOTED. CALL LIGHT IN REACH. WILL CONTINUE TO MONITOR.
[2017-11-14 20:00] VITALS: BP 140/72
--- NOTE | 2017-11-14 20:30 | NUR ---
MS RN NOTE: PATIENT STATES THAT HE DOES NOT WANT TO TAKE NORCO 10/325MG AND THAT AT HOME HE MANAGES HIS PAIN WITH MOTRIN 800MG EVERY 6 HOURS NEEDED. INFORMED THAT HE HAS MOTRIN 400MG EVERY 6 HOURS NEEDED ORDERED AND NORCO 5/325MG, PATIENT WOULD RATHER HAD MOTRIN 800MG EVERY 6 HOURS NEEDED IF POSSIBLE. CALLED [employer]GAL CONSULTANT MD, SPOKE TO CHARIS LOPEZ NP AND RECEIVED ORDERS TO DISCONTINUE ORDER OF SCHEDULED NORCO 10/325MG AND MOTRIN 400MG EVERY 6 HOURS ORDERED BEFORE. NEW ORDER FOR MOTRIN 800MG ORAL EVERY 6 HOURS NEEDED, RECEIVED , ORDERED NOTED AND CARRIED OUT. WILL CONTINUE TO MONITOR.
--- NOTE | 2017-11-14 23:30 | NUR ---
MS RN NOTE: PATIENT BLOOD SUGAR LEVEL 219MG/DL, PATIENT TO RECEIVE 6 UNITS OF INSULIN PER SLIDING SCALE. NO S/S OF HYPERGLYCEMIA NOTED. WILL CONTINUE TO MONITOR.
[2017-11-15] MEDS: PIPERACILLIN /TAZOBACTAM 2.25 G in IV D5W 50 ML IV SCH ×4 (05:48→23:12)
[2017-11-15] MEDS: BLOOD SUGAR DIAGNOSTIC 1 EACH STRIP IN SCH ×4 (05:48→23:15)
[2017-11-15] MEDS: INSULIN REGULAR, HUMAN 100 UNIT/ML 3 ML VIAL SQ PRN ×4 (05:57→23:37)
--- NOTE | 2017-11-15 06:10 | NUR ---
MS RN NOTE: PATIENT RESTING IN BED, NO ACUTE DISTRESS NOTED. BREATHING EVEN AND UNLABORED, NO SOB NOTED. IV TO LFA IN PLACE. ABDOMINAL DRAIN IN PLACE. BLOOD SUGAR LEVEL 210 MG/DL, PATIENT TO RECEIVE 6 UNITS OF INSULIN PER SLIDING SCALE, NO S/S OF HYPERGLYCEMIA NOTED. BED LOCKED AND IN LOWEST POSITION, CALL LIGHT IN REACH. WILL ENDORSE TO DAY NURSE TO CONTINUE WITH PLAN OF CARE.
[2017-11-15 07:07] LABS: *SPE A/G RATIO 0.8 (0.7-1.7); *SPE ALBUMIN 3.2 g/dL (2.9-4.4); *SPE ALPHA-1-GLOBULIN 0.4 g/dL (0.0-0.4); *SPE ALPHA-2-GLOBULIN 1.2 g/dL (0.4-1.0); *SPE BETA GLOBULIN 1.3 g/dL (0.7-1.3); *SPE GLOBULIN, TOTAL 3.9 g/dL (2.2-3.9); *SPE M-SPIKE Not Observed g/dL (Not Observed); *SPEGAMMA GLOBULIN 1.1 g/dL (0.4-1.8)
[2017-11-15 07:43] VITALS: BP 145/74
--- NOTE | 2017-11-15 07:56 | NUR ---
MS RN NOTES A/O X4, SITTING UP IN THE CHAIR. IVC IN LFA INTACT, FLUSHES WELL. REFUSING IVF MD GIOVANI IS AWARE. RIGHT ABDOMINAL INCISION WITH TUBING TO DRAINAGE BAG, NO DRAINAGE FLUIDS FROM PREVIOUS RECORDS. NO APPETITE TO EAT BREAKFAST AT THIS TIME. DENIES PAIN, SAFETY MEASURES IN PLACE. WILL CONT TO MONITOR.
[2017-11-15 08:05] VITALS: BP 145/74
[2017-11-15] MEDS: PANTOPRAZOLE 40 MG VIAL IV SCH (08:31)
[2017-11-15] MEDS: IV NS 0.9% 1,000 ML IV PRN (12:30)
[2017-11-15 16:19] VITALS: BP 156/78
--- NOTE | 2017-11-15 18:19 | NUR ---
MS RN CLOSING NOTES CONTINUE ON ANTIBIOTIC IV WITH NO ADVERSE SIDE EFFECT, AFEBRILE DURING THE SHIFT. RIGHT SIDE ABDOMEN DRAIN TUBE INTACT, NO NEW FLUID DRAINAGE COLLECTED IN THE BAG. AMBULATING, DENIES PAIN, URINATING WITHOUT DIFFICULTY. BLOOD SUGAR MONITORED WITH INSULIN REGULAR SC ADMINISTERED PER PARAMETERS. PATIENT IS ON ROOM AIR, TOLERATING WELL, NO SOB. SEEN BY DR. BEULAH PINEDA TODAY, DC PLANNING. DURATION OF ANTIBIOTIC AND REMOVAL OF DRAIN TO FOLLOW UP WITH DR. VIVAR/SURGERY. SAFETY MEASURES IN PLACE. WILL ENDORSE TO ONCOMING RN.
--- NOTE | 2017-11-15 19:30 | NUR ---
RN NOTE; RECEIVED PT SITTING ON A CHAIR W/ FAMILY AT THE BED SIDE. BREATHING EVENLY. NO SOB. NAD. STILL W/ INTERMITTENT ABD PAIN WHICH REFUSED PAIN MEDICATION AT THIS TIME AND REQUESTING TO RECEIVED IT LATER BEFORE BED. DRAINAGE BAG ON THE RLQ ABD IN PLACE W/ PINK/RED DISCHARGES. DRESSING IN PLACE W. A COUPLE BLISTERS UNDER THE TRANSPARENT DRESSING. NEEDS ATTENDED. CALL LIGHT WITHIN REACH. WILL CONT TO MONITOR
[2017-11-15 20:00] VITALS: BP 162/88
[2017-11-16] MEDS: MORPHINE SULFATE INJ 4 MG/ML DISP.SYRIN IV PRN (01:12)
--- NOTE | 2017-11-16 01:15 | NUR ---
MORPHINE GIVEN FOR C/O SEVERE ABD PAIN. WILL CONT TO MONITOR
[2017-11-16] MEDS: HYDROCODONE/APAP 5/325MG 1 EACH TABLET PO PRN (03:07)
--- NOTE | 2017-11-16 03:10 | NUR ---
NORCO GIVEN ORDERED PER PT'S REQUEST FOR C/O ABD PAIN . WILL CONT TO MONITOR
[2017-11-16] MEDS: PIPERACILLIN /TAZOBACTAM 2.25 G in IV D5W 50 ML IV SCH (06:38)
[2017-11-16] MEDS: BLOOD SUGAR DIAGNOSTIC 1 EACH STRIP IN SCH ×2 (06:43→12:40)
[2017-11-16] MEDS: INSULIN REGULAR, HUMAN 100 UNIT/ML 3 ML VIAL SQ PRN ×2 (06:46→12:39)
--- NOTE | 2017-11-16 06:48 | NUR ---
PT SITTING AT THE EDGE OF THE BED AWAKE AND ALERT. BREATHING EVENLY. NO ACUTE DISTRESS OVER THE NIGHT , NEEDS ATTENDED. PAIN MEDS GIVEN ORDERED PERP T'S REQUEST, NEEDS ATTENDED. CALL LIGHT WITHIN REACH, WILL CONT TO MONITOR AND WILL ENDORSE TO AM SHIFT FOR BRITNI.
[2017-11-16 07:19] LABS: BASOPHILS % (AUTO) 0.9 % (0.0-2.0); EOSINOPHILS % (AUTO) 2.1 % (0.0-6.0); HEMATOCRIT 30 % (39-51); HEMOGLOBIN 10.3 g/dL (13.5-17.5); LYMPHOCYTES # (AUTO) 0.9 /CMM (0.8-4.8); LYMPHOCYTES % (AUTO) 22.9 % (20.0-44.0); MEAN CORPUSCULAR HGB CONC 35 g/dl (31.0-36.0); MEAN CORPUSCULAR VOLUME 84 fL (80-96); MONOCYTES # (AUTO) 0.4 /CMM (0.1-1.30); MONOCYTES % (AUTO) 10.4 % (2.0-12.0); NEUTROPHILS # (AUTO) 2.5 /CMM (1.8-8.9); NEUTROPHILS % (AUTO) 63.7 % (43.0-81.0); PLATELET COUNT (AUTO) 270 /CMM (150-450); RDW COEFFICIENT OF VARIATION 12.7 (11.5-15.0); RED BLOOD CELL COUNT(AUTO) 3.54 MIL/uL (4.5-6.0); WHITE BLOOD COUNT (AUTO) 3.9 K/uL (4.3-11.0)
[2017-11-16 07:29] LABS: CALCIUM, SERUM 7.8 mg/dL (8.5-10.1); CREATININE 3.5 mg/dL (0.6-1.3); MAGNESIUM 1.8 mg/dL (1.8-2.4); PHOSPHORUS 3.8 mg/dL (2.5-4.9); POTASSIUM 3.8 mmol/L (3.5-5.1)
[2017-11-16 08:00] VITALS: BP 126/70
[2017-11-16] MEDS: PANTOPRAZOLE 40 MG VIAL IV SCH (08:32)
--- NOTE | 2017-11-16 08:34 | NUR ---
MS RN NOTES A/O X4, CALM AND COOPERATIVE. RIGHT ABDOMINAL DRAIN TUBING TO DRAINAGE BAG, NO NOTED CURRENT FLUID DRAINAGE. DRESSING IN PLACE, DENIES PAIN. SAFETY MEASURES IN PLACE. AWAITING FOR DR. VIVAR CALL BACK. WILL CONT TO MONITOR.
--- NOTE | 2017-11-16 08:49 | NUR ---
RECEIVED PHONE CALL FROM DR. VIVAR/SURGERY, REVIEWED ABDOMINAL GS BODY FLUID CULTURE WITH MD, ORDERED TO STOP ANTIBIOTIC NOW, SEND PATIENT TO RADIOLOGY DEPT. TO REMOVE ABDOMINAL DRAIN TODAY, NO SURGICAL INTERVENTION REQUIRED AT THIS TIME PER DR. VIVAR, AND PATIENT CAN BE DISCHARGE HOME TODAY AND FOLLOW UP WITH HIS OFFICE IN [facility] IN 1-2 WEEKS. WILL INFORM ATTENDING DOCTOR.
[2017-11-16] MEDS: ACETAMINOPHEN 325 MG TABLET PO PRN (09:53)
--- NOTE | 2017-11-16 10:26 | NUR ---
WOUND CARE CONSULT: PT PRESENTS WITH DRAINAGE TUBE (CONNECTED TO DRAINAGE BAG) TO RT ABDOMEN WITH NONREMOVABLE WHITE DRESSING IN PLACE AND TRANSPARENT DRESSING COVERING ENTIRE AREA. TWO INTACT BLISTERS NOTED UNDER TRANSPARENT DRESSING. TRANSPARENT DRESSING REMOVED, WHITE TUBE DRESSING LEFT INTACT AND BLISTERS CLEANSED WITH NS, PATTED DRY, THEN XEROFORM DRESSING APPLIED AND COVERED WITH MEPILEX. PT TOLERATED WELL. ALL SKIN PROTECTION AND WOUND CARE RECOMMENDATIONS DISCUSSED WITH NURSING STAFF. PT TO HAVE DRAINAGE TUBE REMOVED TODAY IN RADIOLOGY PER NURSING STAFF. RECOMMEND SURGICAL FOLLOW UP. WILL SEE PRN. WHALEY IN AGREEMENT WITH PLAN OF CARE. Addendum: 11/16/17 at 1030 by GALILEA FARIAS WNDNU Amended: Links added.
--- NOTE | 2017-11-16 13:30 | NUR ---
PERCUTANEOUS DRAIN REMOVED BY RADIOLOGIST AT THE BEDSIDE, PATIENT TOLERATED PROCEDURE WELL, DENIES PAIN. NO BLEEDING NOTED, DRAIN SITE WAS COVERED WITH CLEAN AND DRY GAUZE.
--- NOTE | 2017-11-16 17:05 | NUR ---
MS RN DISCHARGED PATIENT HAS BEEN CLEARED FOR DISCHARGE HOME BY MD, PATIENT REMAINS STABLE, DENIES ANY PAIN. IVC IN LFA REMOVED, GAUZE APPLIED. ABDOMINAL DRAIN SITE DRESSING INTACT, NO BLEEDING NOTED. DISCHARGE INSTRUCTION GIVEN TO THE PATIENT, VERBALIZED UNDERSTANDING. BELONGINGS CHECKED BY LEANN DENSON AND SEND WITH THE PATIENT UPON DC. INSTRUCTED PATIENT TO FOLLOW UP WITH PRIMARY CARE PHYSICIAN AND DR. VIVAR/SURGEON WITHIN 1-2 WEEKS POST DC, PHONE NUMBER PROVIDED TO THE PATIENT TO CALL FOR APPOINTMENT. PATIENT LEFT HOSP IN STABLE CONDITION VIA PRIVATE CAR ACCOMPANIED BY HIS SON.
== END 2017-11-16 18:29 | disposition home or self-care (01) ==
LOC: MEDSG2 11-08 00:34
PROVIDERS: ADMIT Nurse Practitioner Acute Care; ATTEND Nurse Practitioner Acute Care
PROC: 0W9F3ZZ Drainage of Abdominal Wall, Percutaneous Approach (ICD-10-PCS; principal; 2017-11-09)
PROC: 0BH17EZ Insertion of Endotracheal Airway into Trachea, Via Natural or Artificial Opening (ICD-10-PCS; 2017-11-13)
PROC: 5A1945Z Respiratory Ventilation, 24-96 Consecutive Hours (ICD-10-PCS; 2017-11-13)
DX: K80.51 Calculus of bile duct without cholangitis or cholecystitis with obstruction (principal); N17.0 Acute kidney failure with tubular necrosis; K65.1 Peritoneal abscess; E44.1 Mild protein-calorie malnutrition; E83.42 Hypomagnesemia; F03.90 Unspecified dementia, unspecified severity, without behavioral disturbance, psychotic disturbance, mood disturbance, and anxiety; E78.5 Hyperlipidemia, unspecified; E11.9 Type 2 diabetes mellitus without complications; I10 Essential (primary) hypertension; K21.9 Gastro-esophageal reflux disease without esophagitis; Z90.49 Acquired absence of other specified parts of digestive tract; Z79.82 Long term (current) use of aspirin; Z79.899 Other long term (current) drug therapy; Z68.38 Body mass index [BMI] 38.0-38.9, adult
CPT/HCPCS: 36415; 71045-TC; 75989; 75989-TC; 76770-TC; 76882; 76942-TC; 80048-TC; 80053-TC; 80061-TC; 80076-TC; 80202-TC; 81000-TC; 82550-TC; 82570-TC; 82962-TC; 83605-TC; 83735-TC; 83970; 84100-TC; 84155; 84155-TC; 84165; 84300-TC; 84443-TC; 84484-TC; 85025-TC; 85610-TC; 87070-TC; 87081-TC; 89051-TC; A6402; C9113; J1815; J1885; J2250; J2270; J2310; J2543; J3010; J3370; J3475; J3490; J7030; J7040; J7050; J7060; Z7610